=== PATIENT | female | born 1955 | race Caucasian/White ===

== ENCOUNTER → 2020-12-12 | Outpatient (CLI) | payer OTHER ==
[~2020-12-12] MED LIST: ACET500 PO; ACIDOPHILUS LA1 EACH PO; ALPR.25 PO; ASPI81CH PO; ATOR20 PO; Aspirin EC81 MG PO; C COMPLEX1000 MG PO; COQ-10100 MG PO; COQ1050 MG PO; Glucosamine H1500 MG PO; Hair, Skin & N1 EACH PO; LEVSOD100 PO; LISI20 PO; Loratadine10 MG PO; MAGNESIUM OXID500 MG PO; MAGOXI400 PO; MELA3 PO; METO50ER PO; MONT10T PO; OMEP20ER PO; OXYC5 PO; Omeprazole20 M1 PO; Prilosec Otc20 MG PO; Super B Comple150 MG PO; VITAMIN D31000 UNI1 PO; Ventolin/Prove6.7 GM INH; Vitamin B Comple1 EA PO; ZESTRIL40 M2 PO
[2020-12-14 14:14] LABS: CORONAVIRUS (COVID19) CSH-NRL Negative (Negative)
== END | disposition home or self-care (01) ==
LOC: PLD 17:17 → LAB SHORT 17:17
PROVIDERS: Chiropractor
DX: Z20.822 Contact with and (suspected) exposure to COVID-19 (principal)
CPT/HCPCS: U0003

== ENCOUNTER 2023-09-12 13:09 | Emergency (ER) | payer OTHER ==
[~2023-09-12] VITALS: Ht 154.9 cm; Wt 98.4 kg
[~2023-09-12 13:09] MED LIST changes: +EUTHYROX50 MCG; -LEVSOD100 PO
[2023-09-12 17:22] VITALS: BP 119/70
== END 2023-09-12 17:50 | disposition home or self-care (01) ==
LOC: ER 13:09
DX: S06.0X0A Concussion without loss of consciousness, initial encounter (principal); S30.0XXA Contusion of lower back and pelvis, initial encounter; W06.XXXA Fall from bed, initial encounter; Z88.0 Allergy status to penicillin; Z88.2 Allergy status to sulfonamides; Z79.899 Other long term (current) drug therapy; Z79.82 Long term (current) use of aspirin; I10 Essential (primary) hypertension; J45.909 Unspecified asthma, uncomplicated
CPT/HCPCS: 70450; 72125; 72170; 99284-25; A9270

== ENCOUNTER 2025-10-04 05:53 | Day surgery (SDC) | payer OTHER ==
[2025-10-04] VITALS (11 sets, daily range): BP systolic 114–180; BP diastolic 64–76
[~2025-10-04] VITALS: Ht 156 cm; Wt 93.8 kg
[~2025-10-04 05:53] MED LIST changes: +ALBU90OI INH; -EUTHYROX50 MCG; +LEVSOD100 PO
[2025-10-04] MEDS ORDERED: Chlorhexidine Mouth Care 15 ML UDC MT SCH (06:20)
[2025-10-04] MEDS ORDERED: Ropivacaine 0.5% HCl/Pf 123.125 MG,EPINEPHrine HCL 0.25 MG,Ketorolac Tromethamine 15 MG... INFIL SCH (06:20)
[2025-10-04] MEDS ORDERED: Tranexamic Acid 100 ML IV SCH (06:20)
[2025-10-04] MEDS ORDERED: CeFAZolin Sodium 2,000 MG in NS 100 ML IV SCH ×2 (06:20→16:00)
--- NOTE | 2025-10-04 06:40 | NUR ---
Ambulatory in Day Surgery History, Chart, Medications and Allergies reviewed before start of procedure. Pre-Op teaching done. Pt verbalizes understanding. Patient States Post-Procedure ride home has been arranged.
[2025-10-04] MEDS ORDERED: FentaNYL Citrate 50 MCG/ML 5 ML Injection ONE (07:01)
[2025-10-04] MEDS ORDERED: Midazolam HCl 1MG / ML 2ML Vial ONE (07:01)
[2025-10-04] MEDS ORDERED: Metoclopramide HCl 5MG / ML 2ML Vial ONE (07:04)
[2025-10-04] MEDS ORDERED: Ondansetron HCl 2 MG / ML 2ML Vial ONE (07:04)
[2025-10-04] MEDS ORDERED: Magnesium Sulfate 500 MG / ML 2ML Vial ONE (07:05)
[2025-10-04] MEDS ORDERED: ePHEDrine Sulfate 50 MG/ML 1ML Injection IV PRN (07:55)
[2025-10-04] MEDS ORDERED: FentaNYL Citrate 50 MCG/ML 2 ML Injection IV PRN ×2 (07:55→08:00)
[2025-10-04] MEDS ORDERED: Ondansetron HCl 2 MG / ML 2ML Vial IV PRN ×2 (07:55→08:10)
[2025-10-04] MEDS ORDERED: Metoclopramide HCl 5MG / ML 2ML Vial IV PRN ×2 (08:00→08:10)
[2025-10-04] MEDS ORDERED: HYDROmorphone HCl/Pf 1MG SYR IV PRN ×2 (08:00→08:15)
[2025-10-04] MEDS ORDERED: Morphine Sulfate 4 MG/1 ML Injection IV PRN (08:00)
[2025-10-04] MEDS ORDERED: Phenylephrine HCl 100 MCG/ML-NS 10MLSYR (1MG/10ML) ONE ×3 (08:05→09:07)
[2025-10-04] MEDS ORDERED: Magnesium Hydroxide Conc 10 ML UDC PO PRN (08:05)
[2025-10-04] MEDS ORDERED: Prochlorperazine Edisylate 10 mg Vial IV PRN (08:15)
[2025-10-04] MEDS ORDERED: FLU VACC TS2025(65UP)/MF59C/PF 45 MCG/0.5 ML SYRINGE IM SCH (08:20)
[2025-10-04] MEDS ORDERED: Albuterol HFA200 ACT/6.7 GM INH INH PRN (08:25)
[2025-10-04] MEDS ORDERED: ACET500 PO (09:43)
[2025-10-04] MEDS ORDERED: DOCU100 PO (09:43)
[2025-10-04] MEDS ORDERED: OXYC5 PO (09:44)
--- NOTE | 2025-10-04 09:50 | NUR ---
ARRIVAL TO SURG FLOOR TO FLOOR VIA GURNEY. A&O x4, VSS. ABLE TO WIGGLE TOES & MOVE LEGS, BUT STATES RESIDUAL NUMBNESS FROM SPINAL. L HIP w/PERNEO DRESSING - C/D/I. POLAR PACK IN PLACE. STATES NO PAIN AT THIS TIME. AWAITING POST OP VOID. SNACKS & DRINKS GIVEN.
[2025-10-04] MEDS ORDERED: Ketorolac Tromethamine 15mg Vial IV SCH (12:00)
--- NOTE | 2025-10-04 15:56 | NUR ---
DISCHARGE SUMMARY S/P L ALICE. A&O x4 - VSS. L HIP w/PERNEO DRESSING - C/D/I. WORKED w/THERAPY - AMBULATED IN HALLWAY & ROOM. TOLERATING FOOD & FLUIDS WELL. STATES NO PAIN AT THIS TIME. VOIDED SUCCESSFULLY. DISCHARGE INSTRUCTIONS REVIEWED & GIVEN. POLAR PACK SENT. ESCORTED OUT VIA WC.
== END 2025-10-04 16:00 | disposition home or self-care (01) ==
LOC: ORSCMMR 05:53 → ORD 08:30 → SURS 09:40 → ORSCMMR 11:45
PROVIDERS: Orthopaedic Surgery
PROC: 0SRB0JA Replacement of Left Hip Joint with Synthetic Substitute, Uncemented, Open Approach (ICD-10-PCS; principal; 2025-10-04 07:30)
DX: M16.12 Unilateral primary osteoarthritis, left hip (principal); I10 Essential (primary) hypertension; J45.909 Unspecified asthma, uncomplicated; K21.9 Gastro-esophageal reflux disease without esophagitis; E07.9 Disorder of thyroid, unspecified; E78.00 Pure hypercholesterolemia, unspecified; Z79.899 Other long term (current) drug therapy; Z96.651 Presence of right artificial knee joint; E66.9 Obesity, unspecified; Z68.38 Body mass index [BMI] 38.0-38.9, adult
CPT/HCPCS: 72170; 97110; 97116; 97162; 97530; A9270; C1776; J0166; J0690; J0735; J1885; J2250; J2371; J2405; J2704; J2765; J2795; J3010; J3475; J7120